=== PATIENT | female | born 1995 | race Caucasian/White ===

== ENCOUNTER 2018-02-11 21:48 | Emergency (ER) | payer MEDICAID ==
[~2018-02-11] VITALS: Ht 172.7 cm; Wt 113.6 kg
[2018-02-11 22:09] VITALS: Ht 172.7 cm; Wt 113.6 kg
[2018-02-11] MEDS ORDERED: PREDNISONE5 MG (22:38)
[2018-02-11 23:42] LABS: HCG URINE NEGATIVE (NEGATIVE)
[2018-02-11 23:43] LABS: HEMATOCRIT 39.8 % (36.0-48.0); HEMOGLOBIN 13.8 g/dL (12-16); LYMPHOCYTES 17.1 % (15-50); MCH 29.3 pg (26.0-34.0); MCHC 34.7 g/dL (31.0-37.0); MCV 84.5 fL (80.0-100.0); MEAN PLATELET VOLUME 9.4 fL (7.4-10.4); NEUTROPHILS 75.5 % (40-80); PLATELET COUNT 271 10x3/uL (130-400); RBC 4.71 10x6/uL (4.00-5.40); RDW 13.9 % (11.5-14.5)
[2018-02-11 23:47] LABS: ALKALINE PHOSPHATASE 55 U/L (46-116); ALT (SGPT) 43 U/L (10-68); CALC OSMOLALITY 289 mosm/kg (275-300); CALCIUM 9.1 mg/dL (8.5-10.1); CARBON DIOXIDE 28.7 mmol/L (21.0-32.0); CHLORIDE - SERUM 106 mmol/L (98-107); GLUCOSE 130 mg/dL (74-106); MAGNESIUM - SERUM 2.1 mg/dL (1.8-2.4); POTASSIUM - SERUM 3.6 mmol/L (3.5-5.1); PROTEIN - SERUM 7.3 g/dL (6.4-8.2); SODIUM 145 mmol/L (136-145); UREA NITROGEN 10 mg/dL (7-18); eGFR NON AFRICAN AMERICAN 75 mL/min (90-120)
[2018-02-11 23:49] LABS: UDS - AMPHET NEGATIVE QUAL (NEGATIVE); UDS - BARB NEGATIVE QUAL (NEGATIVE); UDS - BENZO NEGATIVE QUAL (NEGATIVE); UDS - COCAINE NEGATIVE QUAL (NEGATIVE); UDS - OPIATE NEGATIVE QUAL (NEGATIVE); UDS - PCP NEGATIVE QUAL (NEGATIVE); UDS - THC NEGATIVE QUAL (NEGATIVE)
[2018-02-11 23:59] LABS: APPEARANCE CLOUDY (CLEAR); BILIRUBIN NEGATIVE (NEGATIVE); COLOR YELLOW (YELLOW); GLUCOSE NEGATIVE (NEGATIVE); KETONE NEGATIVE (NEGATIVE); NITRITE NEGATIVE (NEGATIVE); PROTEIN NEGATIVE (NEGATIVE); SPECIFIC GRAVITY 1.025 (1.005-1.020); UROBILINOGEN NORMAL (NORMAL)
[2018-02-12 00:06] LABS: BACTERIA MANY /hpf (NONE SEEN); EPITHELIAL CELLS 0-5 /hpf (0-5); RED CELLS - URINE 0-5 /hpf (0-5); WHITE CELLS - URINE 0-5 /hpf (0-5)
[2018-02-12] MEDS ORDERED: KEPPRA500 MG PO (02:16)
[2018-02-12 02:45] VITALS: BP 114/64
== END 2018-02-12 02:45 | disposition home or self-care (01) ==
LOC: D.ER 21:48
PROVIDERS: Emergency Medicine
DX: G40.409 Other generalized epilepsy and epileptic syndromes, not intractable, without status epilepticus (principal); H57.02 Anisocoria; R51 Headache; R53.1 Weakness; F17.200 Nicotine dependence, unspecified, uncomplicated

== ENCOUNTER 2018-03-09 05:48 | Emergency (ER) | payer MEDICAID ==
[~2018-03-09] VITALS: Ht 172.7 cm; Wt 113.6 kg
[~2018-03-09 05:48] MED LIST: KEPPRA500 MG PO; PREDNISONE5 MG
[2018-03-09 05:50] VITALS: Ht 172.7 cm; Wt 113.6 kg
[2018-03-09 06:45] LABS: HCG URINE NEGATIVE (NEGATIVE)
[2018-03-09 07:11] LABS: BASOPHILS 0.4 % (0-2); EOSINOPHILS 2.4 % (0-7); HEMATOCRIT 40.7 % (36.0-48.0); HEMOGLOBIN 14.1 g/dL (12-16); IMMATURE GRANULOCYTES 0.4 % (0-5); LYMPHOCYTES 49.5 % (15-50); MCH 29.3 pg (26.0-34.0); MCHC 34.6 g/dL (31.0-37.0); MCV 84.6 fL (80.0-100.0); MEAN PLATELET VOLUME 9.4 fL (7.4-10.4); MONOCYTES 9.1 % (2-11); NEUTROPHILS 38.2 % (40-80); PLATELET COUNT 242 10x3/uL (130-400); RBC 4.81 10x6/uL (4.00-5.40); RDW 13.7 % (11.5-14.5); WBC 5.5 10x3/uL (4.8-10.8)
[2018-03-09 07:31] LABS: ALBUMIN 3.7 g/dL (3.4-5.0); ALKALINE PHOSPHATASE 65 U/L (46-116); ALT (SGPT) 39 U/L (10-68); BILIRUBIN - TOTAL 0.18 mg/dL (0.2-1.3); CALC OSMOLALITY 280 mosm/kg (275-300); CALCIUM 8.9 mg/dL (8.5-10.1); CARBON DIOXIDE 26.9 mmol/L (21.0-32.0); CHLORIDE - SERUM 107 mmol/L (98-107); CREATININE - SERUM 0.8 mg/dL (0.6-1.3); GLUCOSE 109 mg/dL (74-106); POTASSIUM - SERUM 3.6 mmol/L (3.5-5.1); PROTEIN - SERUM 6.8 g/dL (6.4-8.2); SODIUM 141 mmol/L (136-145); UREA NITROGEN 9 mg/dL (7-18); eGFR NON AFRICAN AMERICAN > 90 mL/min (90-120)
[2018-03-09 07:38] LABS: THYROID STIMULATING HORMONE 1.93 uIU/mL (0.36-3.74)
[2018-03-09 08:40] VITALS: BP 95/57
== END 2018-03-09 08:42 | disposition home or self-care (01) ==
LOC: D.ER 05:48
PROVIDERS: Family Medicine
DX: G40.909 Epilepsy, unspecified, not intractable, without status epilepticus (principal)

== ENCOUNTER 2018-03-09 21:51 | Observation (INO) | payer MEDICAID ==
[~2018-03-09] VITALS: Ht 172.7 cm; Wt 100.0 kg
--- NOTE | ~2018-03-09 | CN ---
PATIENT NAME:CHEL COBURN MEDICAL RECORD: [id number] : 89 LOCATION:[facility]- ADMIT DATE: 03/10/18 ACCOUNT: [id number] CONSULTING PHYSICIAN: SHIRA EARLY MD REFERRING PHYSICIAN: AMADOU REDMAN MD DATE OF CONSULTATION: 03/10/2018 PSYCHIATRIC CONSULTATION IDENTIFYING DATA: The patient is 22 years old and admitted to the hospital secondary to an overdose. CHIEF COMPLAINT: "I got upset with my boyfriend." HISTORY OF PRESENT ILLNESS: The patient tells me she is angry and upset because her boyfriend took their baby and left. She said she was drinking with a friend and took an overdose. She says she took an overdose of Keppra and Klonopin, but she emphatically denies that she took anything close to the 100 pills that are documented in her medical record. She is positive for Keppra. She is positive for benzodiazepine of course. The patient's mother and father are at bedside, both think that this was an isolated event. They are asked to leave the room after giving their input. The patient repeats that she thinks it was an isolated event. She denies neurovegetative depressive symptoms and indicates that this was an impulsive act because she was upset with her boyfriend. She does not want to go to the hospital. MENTAL STATUS EXAMINATION: The patient is awake, alert and oriented to person, place, time and situation. Her mood is euthymic. Her affect is appropriate. Thought processes are goal directed. Memory, concentration and abstraction abilities are intact. She denies psychotic symptoms and thoughts of self-harm. ASSESSMENT: 1. Adjustment disorder with mixed emotional features. 2. Personality disorder in the cluster B spectrum. PLAN: The patient is clearly engaging in some attention seeking help rejecting activity with her family. She is emphatic about not wanting to go to the hospital. I have recommended it strongly. I do not think she meets current commitment criteria and will allow her to go to outpatient counseling, which she very much wants to do. She says she is not happy with [facility] and would like someplace else. I have recommended Dr. Weber or Dr. Peters as possible alternatives. She and her family are agreeable to that. I think the potential for self-harm is present at some point and it will likely be situational. It is not really possible to treat her with an antidepressant since she is not depressed. I do not think she is bipolar and she is clearly not out of touch with reality. I think that the situation is one of the patient who has severe character pathology and it is likely present throughout her family. She tells me in front of her mother that she took an overdose when she was 15 years old only because she was afraid her mother was going to commit suicide and the mother confirms this. Clearly, there is a great deal of family dynamics that are dysfunctional. Long-term outpatient psychotherapy is probably going to be the most effective means of treating this situation and there will be a risk of self-harm pending situational variants that are not really controllable and even though I would have felt better about an observation in the hospital for a short period of time, I do not think she would meet CONSULT REPORT [id number] CHEL COBURN commitment criteria and even being in the hospital is not going to be very beneficial since the likelihood of any significant pharmacological advantages to being in the hospital would be small. Again, the pathology is character pathology in the axis II spectrum of disorders and the best treatment is long-term and intensive therapy. TRANSINT:[id number] Voice Confirmation ID: [id number] DOCUMENT ID: [id number] SHIRA EARLY MD at 1452 CC: [id number] DICTATION DATE: 03/10/18 1601 RESEARCH LIBRARIAN: 03/10/18 1617 DIS IN 03/10/18 [id number] [place] [address]
[2018-03-09 21:56] VITALS: Ht 172.7 cm; Wt 100.0 kg
[2018-03-09 22:27] LABS: APPEARANCE HAZY (CLEAR); BILIRUBIN NEGATIVE (NEGATIVE); COLOR YELLOW (YELLOW); GLUCOSE NEGATIVE (NEGATIVE); KETONE NEGATIVE (NEGATIVE); NITRITE NEGATIVE (NEGATIVE); PROTEIN NEGATIVE (NEGATIVE); UROBILINOGEN NORMAL (NORMAL)
[2018-03-09 22:32] LABS: UDS - AMPHET NEGATIVE QUAL (NEGATIVE); UDS - BARB NEGATIVE QUAL (NEGATIVE); UDS - BENZO POSITIVE QUAL (NEGATIVE); UDS - COCAINE NEGATIVE QUAL (NEGATIVE); UDS - OPIATE NEGATIVE QUAL (NEGATIVE); UDS - PCP NEGATIVE QUAL (NEGATIVE); UDS - THC NEGATIVE QUAL (NEGATIVE)
[2018-03-09 22:35] LABS: WHITE CELLS - URINE 25-50 /hpf (0-5)
[2018-03-09 22:37] LABS: BACTERIA MANY /hpf (NONE SEEN); RED CELLS - URINE 0-5 /hpf (0-5)
[2018-03-09 22:59] LABS: BASOPHILS 0.5 % (0-2); EOSINOPHILS 1.8 % (0-7); HEMATOCRIT 42.7 % (36.0-48.0); HEMOGLOBIN 14.7 g/dL (12-16); IMMATURE GRANULOCYTES 0.2 % (0-5); LYMPHOCYTES 39.1 % (15-50); MCH 29.6 pg (26.0-34.0); MCHC 34.4 g/dL (31.0-37.0); MCV 85.9 fL (80.0-100.0); MEAN PLATELET VOLUME 9.5 fL (7.4-10.4); NEUTROPHILS 50.4 % (40-80); PLATELET COUNT 259 10x3/uL (130-400); RBC 4.97 10x6/uL (4.00-5.40); RDW 14.2 % (11.5-14.5); WBC 6.6 10x3/uL (4.8-10.8)
[2018-03-09 23:06] VITALS: BP 130/80
[2018-03-09 23:07] LABS: HCG SERUM NEGATIVE (NEGATIVE)
[2018-03-09 23:11] LABS: ALBUMIN 3.8 g/dL (3.4-5.0); ALKALINE PHOSPHATASE 52 U/L (46-116); ALT (SGPT) 35 U/L (10-68); BILIRUBIN - TOTAL 0.48 mg/dL (0.2-1.3); CALC OSMOLALITY 282 mosm/kg (275-300); CALCIUM 8.6 mg/dL (8.5-10.1); CHLORIDE - SERUM 106 mmol/L (98-107); CREATININE - SERUM 0.8 mg/dL (0.6-1.3); GLUCOSE 91 mg/dL (74-106); POTASSIUM - SERUM 3.9 mmol/L (3.5-5.1); PROTEIN - SERUM 7.3 g/dL (6.4-8.2); SODIUM 143 mmol/L (136-145); UREA NITROGEN 8 mg/dL (7-18); eGFR NON AFRICAN AMERICAN > 90 mL/min (90-120)
[2018-03-09 23:18] VITALS: BP 114/66
[2018-03-10] VITALS (12 sets, daily range): BP systolic 104–121; BP diastolic 61–87
[2018-03-10 10:49] LABS: HEMATOCRIT 44.5 % (36.0-48.0); MCH 29.2 pg (26.0-34.0); MCHC 33.7 g/dL (31.0-37.0); MCV 86.7 fL (80.0-100.0); MEAN PLATELET VOLUME 9.6 fL (7.4-10.4); PLATELET COUNT 264 10x3/uL (130-400); RBC 5.13 10x6/uL (4.00-5.40); RDW 14.2 % (11.5-14.5); WBC 5.7 10x3/uL (4.8-10.8)
[2018-03-10 11:18] LABS: EOSINOPHILS 1 % (0-7); LYMPHOCYTES 47 % (15-50); MONOCYTES 4 % (2-11); NEUTROPHILS 44 % (40-80); PLATELET ESTIMATE NORMAL
[2018-03-10 11:21] LABS: ANISOCYTOSIS OCC
== END 2018-03-10 16:45 | disposition home or self-care (01) ==
LOC: D.ER 21:51 → OBSVTIME 03-10 00:03 → D.EDHOLD 03-10 00:03
PROVIDERS: Emergency Medicine; Family Medicine
DX: T42.6X2A Poisoning by other antiepileptic and sedative-hypnotic drugs, intentional self-harm, initial encounter (principal); T42.4X2A Poisoning by benzodiazepines, intentional self-harm, initial encounter; F43.25 Adjustment disorder with mixed disturbance of emotions and conduct; F60.9 Personality disorder, unspecified; F41.8 Other specified anxiety disorders; J45.909 Unspecified asthma, uncomplicated; R56.9 Unspecified convulsions; H57.02 Anisocoria; N39.0 Urinary tract infection, site not specified

== ENCOUNTER 2018-08-17 01:53 | Emergency (ER) | payer MEDICAID ==
[~2018-08-17] VITALS: Ht 172.7 cm; Wt 90.9 kg
[2018-08-17 02:03] VITALS: Ht 172.7 cm; Wt 90.9 kg
[2018-08-17 02:31] LABS: HCG URINE NEGATIVE (NEGATIVE)
[2018-08-17 02:42] LABS: BASOPHILS 0.2 % (0-2); EOSINOPHILS 2.5 % (0-7); HEMATOCRIT 40.7 % (36.0-48.0); HEMOGLOBIN 13.9 g/dL (12-16); LYMPHOCYTES 44.5 % (15-50); MCH 29.2 pg (26.0-34.0); MCHC 34.2 g/dL (31.0-37.0); MCV 85.5 fL (80.0-100.0); MEAN PLATELET VOLUME 10.2 fL (7.4-10.4); MONOCYTES 11.3 % (2-11); NEUTROPHILS 41.5 % (40-80); PLATELET COUNT 196 10x3/uL (130-400); RBC 4.76 10x6/uL (4.00-5.40); RDW 13.3 % (11.5-14.5); WBC 4.8 10x3/uL (4.8-10.8)
[2018-08-17 02:43] LABS: APPEARANCE CLOUDY (CLEAR); BILIRUBIN NEGATIVE (NEGATIVE); COLOR DK YELLOW (YELLOW); GLUCOSE NEGATIVE (NEGATIVE); KETONE SMALL mg/dL (NEGATIVE); NITRITE NEGATIVE (NEGATIVE); PROTEIN NEGATIVE (NEGATIVE); RED CELLS - URINE NONE SEEN /hpf (0-5); SPECIFIC GRAVITY 1.025 (1.005-1.020); UROBILINOGEN NORMAL (NORMAL)
[2018-08-17 02:44] LABS: BACTERIA MODERATE /hpf (NONE SEEN); EPITHELIAL CELLS 25-50 /hpf (0-5)
[2018-08-17 02:57] LABS: ALBUMIN 3.7 g/dL (3.4-5.0); ALKALINE PHOSPHATASE 41 U/L (46-116); ALT (SGPT) 49 U/L (10-68); AMYLASE - SERUM 38 U/L (25-115); BILIRUBIN - TOTAL 0.42 mg/dL (0.2-1.3); CALC OSMOLALITY 281 mosm/kg (275-300); CALCIUM 8.8 mg/dL (8.5-10.1); CARBON DIOXIDE 29.6 mmol/L (21.0-32.0); CHLORIDE - SERUM 105 mmol/L (98-107); CREATININE - SERUM 0.9 mg/dL (0.6-1.3); GLUCOSE 87 mg/dL (74-106); LIPASE 60 U/L (73-393); POTASSIUM - SERUM 3.6 mmol/L (3.5-5.1); SODIUM 143 mmol/L (136-145); UREA NITROGEN 8 mg/dL (7-18); eGFR NON AFRICAN AMERICAN 85 mL/min (90-120)
[2018-08-17] MEDS ORDERED: FLAGYL500 MG PO (03:08)
[2018-08-17] MEDS ORDERED: DOXYCYCLINE HY100 M2 PO (03:08)
[2018-08-17 03:25] VITALS: BP 124/72
== END 2018-08-17 03:26 | disposition home or self-care (01) ==
LOC: D.ER 01:53
PROVIDERS: Emergency Medicine
DX: R11.10 Vomiting, unspecified (principal); N39.0 Urinary tract infection, site not specified; R50.9 Fever, unspecified; G40.909 Epilepsy, unspecified, not intractable, without status epilepticus; F17.200 Nicotine dependence, unspecified, uncomplicated

== ENCOUNTER 2019-06-05 00:37 | Emergency (ER) | payer SELFPAY ==
[~2019-06-05] VITALS: Ht 172.7 cm; Wt 95.5 kg
[~2019-06-05 00:37] MED LIST changes: +DOXYCYCLINE HY100 M2 PO; +FLAGYL500 MG PO
[2019-06-05 00:43] VITALS: Ht 172.7 cm; Wt 95.5 kg
[2019-06-05 00:57] LABS: BASOPHILS 0.3 % (0-2); EOSINOPHILS 2.8 % (0-7); HEMATOCRIT 42.7 % (36.0-48.0); HEMOGLOBIN 14.9 g/dL (12-16); IMMATURE GRANULOCYTES 0.3 % (0-5); LYMPHOCYTES 55.4 % (15-50); MCH 29.7 pg (26.0-34.0); MCHC 34.9 g/dL (31.0-37.0); MCV 85.1 fL (80.0-100.0); MEAN PLATELET VOLUME 9.8 fL (7.4-10.4); MONOCYTES 9.1 % (2-11); NEUTROPHILS 32.1 % (40-80); RBC 5.02 10x6/uL (4.00-5.40); RDW 13.5 % (11.5-14.5); WBC 7.9 10x3/uL (4.8-10.8)
[2019-06-05 00:58] LABS: PLATELET COUNT 309 10x3/uL (130-400)
[2019-06-05 01:12] LABS: ALBUMIN 4.3 g/dL (3.4-5.0); ALKALINE PHOSPHATASE 53 U/L (46-116); ALT (SGPT) 44 U/L (10-68); BILIRUBIN - TOTAL 0.36 mg/dL (0.2-1.3); CALC OSMOLALITY 286 mosm/kg (275-300); CALCIUM 8.7 mg/dL (8.5-10.1); CARBON DIOXIDE 30.7 mmol/L (21.0-32.0); CHLORIDE - SERUM 106 mmol/L (98-107); CREATININE - SERUM 0.9 mg/dL (0.6-1.3); GLUCOSE 99 mg/dL (74-106); MAGNESIUM - SERUM 2.2 mg/dL (1.8-2.4); POTASSIUM - SERUM 3.4 mmol/L (3.5-5.1); PROTEIN - SERUM 7.5 g/dL (6.4-8.2); SODIUM 145 mmol/L (136-145); UREA NITROGEN 6 mg/dL (7-18); eGFR NON AFRICAN AMERICAN 84 mL/min (90-120)
[2019-06-05 01:18] LABS: HCG URINE NEGATIVE (NEGATIVE)
[2019-06-05 01:20] LABS: APPEARANCE CLEAR (CLEAR); COLOR YELLOW (YELLOW)
[2019-06-05 01:21] LABS: BILIRUBIN NEGATIVE (NEGATIVE); GLUCOSE NEGATIVE (NEGATIVE); KETONE NEGATIVE (NEGATIVE); NITRITE NEGATIVE (NEGATIVE); PROTEIN NEGATIVE (NEGATIVE); UROBILINOGEN NORMAL (NORMAL)
[2019-06-05 01:24] LABS: BACTERIA FEW /hpf (NEGATIVE); EPITHELIAL CELLS 0-5 /hpf (0-5); MUCUS <1+ /lpf (NONE SEEN); RED CELLS - URINE 0-5 /hpf (0-5); UDS - AMPHET NEGATIVE QUAL (NEGATIVE); UDS - BARB NEGATIVE QUAL (NEGATIVE); UDS - BENZO NEGATIVE QUAL (NEGATIVE); UDS - COCAINE NEGATIVE QUAL (NEGATIVE); UDS - OPIATE NEGATIVE QUAL (NEGATIVE); UDS - PCP NEGATIVE QUAL (NEGATIVE); UDS - THC NEGATIVE QUAL (NEGATIVE); WHITE CELLS - URINE 0-5 /hpf (NEGATIVE)
[2019-06-05] MEDS ORDERED: ZOFRAN ODT4 MG/UDTAB PO (02:33)
--- NOTE | 2019-06-05 05:09 | NUR ---
DR. EARLY NOTIFIED AND REVIEWED PT'S BEHAVIOR AND ASSESSMENT RESULTS. PT IS A LOW RISK PER DR. EARLY. DR EARLY STATED TO GIVE RESOURCES TO PT AT TIME OF DISCHARGE. NO FURTHER ORDERS AT THIS TIME. RESOURCES REVIEWED WITH PT AND SHE VERBALIZED UNDERSTANDING.
[2019-06-05 05:15] VITALS: BP 131/84
== END 2019-06-05 05:09 | disposition home or self-care (01) ==
LOC: D.ER 00:37
PROVIDERS: Family Medicine
DX: R11.2 Nausea with vomiting, unspecified (principal)